=== PATIENT | female | born 1955 | race Caucasian/White ===

== ENCOUNTER 2018-09-02 03:01 | Inpatient (IN) | END 2018-09-04 18:05 | disposition home or self-care (01) | DRG 446 ==

== ENCOUNTER 2019-07-28 08:01 | Day surgery (SDC) | payer OTHER ==
[~2019-07-28] VITALS: Ht 149.9 cm; Wt 70.0 kg
[2019-07-28] VITALS (10 sets, daily range): BP systolic 101–138; BP diastolic 51–77; PULSE 59–66; RESP 15–26; Ht 149.9 cm; Wt 70.0 kg
[~2019-07-28 08:01] MED LIST: ACET325T33 PO; ALP2OP10 RIGHT EYE; BROMFENAC SODIUM 1.7 ML OPH DROP OPER SCH; IBUP-1542 PO; KETO5DRO21 RIGHT EYE; LACTATED RINGER'S 1,000 ML IV SCH; LIDOCAINE 3.5% GEL TUBE OPER ONE; MOXIFLOXACIN 0.5% 3 ML OPH OPER SCH; PHENYLephrine 2.5% 15 ML OPH OPER SCH; PRED5DRO20 RIGHT EYE; TETRACAINE 0.5% 4 ML OPH OPER SCH
[2019-07-28] MEDS ORDERED: ACETAMINOPHEN 500 MG TAB PO ONE (09:30)
[2019-07-28] MEDS ORDERED: BALANCED SALT SOLN 15 ML OPH IRRIG ONE (11:00)
[2019-07-28] MEDS ORDERED: LIDOCAINE 1.5%/EPI MPF (SDV) 30 ML VIAL ONE (11:16)
[2019-07-28] MEDS ORDERED: TETRACAINE 0.5% 4 ML OPH ONE (11:17)
[2019-07-28] MEDS ORDERED: TOBRAMYCIN 0.3% 3.5 GM OPH OINT ONE (11:17)
[2019-07-28] MEDS ORDERED: ALBUTEROL 0.083% (NEB) 2.5 MG/3 ML AMP HHN PRN (11:30)
[2019-07-28] MEDS ORDERED: DIPHENHYDRAMINE 50 MG INJ IV PRN (11:30)
[2019-07-28] MEDS ORDERED: FENTAnyl 50 MCG/ML VIAL IV PRN (11:30)
[2019-07-28] MEDS ORDERED: ONDANSETRON 4 MG INJ IV PRN (11:30)
[2019-07-28] MEDS ORDERED: ACETAMINOPHEN 325 MG TAB PO PRN (11:30)
[2019-07-28] MEDS ORDERED: hydrALAzine 20 MG INJ IV PRN (11:30)
[2019-07-28] MEDS ORDERED: LABETALOL HCL 20MG INJ IV PRN (11:30)
[2019-07-28] MEDS ORDERED: OXYCODONE/ACETAMINOPHEN (5/325) TAB PO PRN (11:30)
[2019-07-28] MEDS ORDERED: FENTAnyl 50 MCG/ML VIAL ONE (11:35)
[2019-07-28] MEDS ORDERED: CEFAZOLIN 1 GM INJ ONE (11:35)
[2019-07-28] MEDS ORDERED: MIDAZOLAM 1 MG/ML 2 ML INJ ONE (11:36)
== END 2019-07-28 13:22 | disposition home or self-care (01) ==
LOC: SDS 08:01
PROVIDERS: ATTEND Ophthalmology
DX: H11.051 Peripheral pterygium, progressive, right eye (principal); E66.9 Obesity, unspecified; Z68.31 Body mass index [BMI] 31.0-31.9, adult
CPT/HCPCS: 65426; J0690; J2250; J3010; Z7512; Z7610